=== PATIENT | female | born 1930 | race Hispanic/Latino ===

== ENCOUNTER 2018-02-10 01:07 | Emergency (ER) | payer OTHER ==
[2018-02-10] MEDS ORDERED: WATER FOR INJ,STERILE 20 ML ONE (01:48)
--- NOTE | 2018-02-10 01:55 | EDPHYS ---
Physician Documentation [facility] Name: Pati Miramontes Age: 87 yrs Sex: Female : 1930 Arrival Date: 02/10/2018 Time: 01:12 Bed 16 Private MD: ED Physician Naresh Perry HPI: 02/10 01:49 This 87 yrs old Female presents to ER via Unassigned with complaints of michael REMOVED PEG TUBE. 01:49 The patient presents with abdominal pain. Onset: The symptoms/episode began/occurred michael just prior to arrival. The symptoms do not radiate. The symptoms do not radiate. Associated signs and symptoms: none. The symptoms are described as gastrostomy tube out. Modifying factors: The symptoms are alleviated by nothing, the symptoms are aggravated by nothing. Severity of pain: At its worst the pain was mild in the emergency department the pain is unchanged. The patient has not experienced similar symptoms in the past. Historical: - Allergies: 02:06 Hydrocodone-Acetaminophen; tl2 02:06 Warfarin; tl2 02:06 Promethazine; tl2 - Home Meds: 02:06 Nexium 20 mg Oral cpDR 1 cap once daily [Active]; Plavix 75 mg Oral tab 1 tab once tl2 daily [Active]; aspirin 81 mg Oral chew 1 tab once daily [Active]; amlodipine 5 mg tab 1 tab once daily [Active]; lisinopril 2.5 mg Oral tab 1 tab once daily [Active]; Lasix 20 mg Oral tab 1 tab once daily [Active]; digoxin 125 mcg Oral tab 1 tab once daily [Active]; - PMHx: 02:06 CVA; CHF; Atrial Fib; Hypertension; tl2 - PSHx: 02:06 Bowel resection; Knee surgery; Hysterectomy; pacemaker; Cholecystectomy; tl2 - Immunization history:: Adult Immunizations up to date. - Social history:: Smoking status: Patient/guardian denies using tobacco. - Family history:: not pertinent. - Ebola Screening: : No symptoms or risks identified at this time. ROS: 01:49 Constitutional: Negative for fever, chills, and weight loss, Eyes: Negative for injury, michael pain, redness, and discharge, ENT: Negative for injury, pain, and discharge, Neck: Negative for injury, pain, and swelling, Cardiovascular: Negative for chest pain, palpitations, and edema, Respiratory: Negative for shortness of breath, cough, wheezing, and pleuritic chest pain, Back: Negative for injury and pain, : Negative for injury, bleeding, discharge, and swelling, MS/Extremity: Negative for injury and deformity, Skin: Negative for injury, rash, and discoloration, Neuro: Negative for headache, weakness, numbness, tingling, and seizure, Psych: Negative for depression, anxiety, suicide ideation, homicidal ideation, and hallucinations, Allergy/Immunology: Negative for hives, rash, and allergies, Endocrine: Negative for neck swelling, polydipsia, polyuria, polyphagia, and marked weight changes, Hematologic/Lymphatic: Negative for swollen nodes, abnormal bleeding, and unusual bruising. 01:49 Abdomen/GI: Positive for abdominal pain, of the left upper quadrant, peg out. Exam: 01:49 Constitutional: This is a well developed, well nourished patient who is awake, alert, michael and in no acute distress. Head/Face: Normocephalic, atraumatic. Eyes: Pupils equal round and reactive to light, extra-ocular motions intact. Lids and lashes normal. Conjunctiva and sclera are non-icteric and not injected. Cornea within normal limits. Periorbital areas with no swelling, redness, or edema. ENT: Nares patent. No nasal discharge, no septal abnormalities noted. Tympanic membranes are normal and external auditory canals are clear. Oropharynx with no redness, swelling, or masses, exudates, or evidence of obstruction, uvula midline. Mucous membranes moist. Neck: Trachea midline, no thyromegaly or masses palpated, and no cervical lymphadenopathy. Supple, full range of motion without nuchal rigidity, or vertebral point tenderness. No Meningismus. Chest/axilla: Normal chest wall appearance and motion. Nontender with no deformity. No lesions are appreciated. Cardiovascular: Regular rate and rhythm with a normal S1 and S2. No gallops, murmurs, or rubs. Normal PMI, no JVD. No pulse deficits. Respiratory: Lungs have equal breath sounds bilaterally, clear to auscultation and percussion. No rales, rhonchi or wheezes noted. No increased work of breathing, no retractions or nasal flaring. Back: No spinal tenderness. No costovertebral tenderness. Full range of motion. Female : Normal external genitalia. Skin: Warm, dry with normal turgor. Normal color with no rashes, no lesions, and no evidence of cellulitis. MS/ Extremity: Pulses equal, no cyanosis. Neurovascular intact. Full, normal range of motion. Psych: Awake, alert, with orientation to person, place and time. Behavior, mood, and affect are within normal limits. 01:49 Abdomen/GI: Inspection: abdomen appears normal, Bowel sounds: normal, Palpation: nontender, Liver: no appreciated palpable abnormalities, Hernia: not appreciated. Vital Signs: 02:06 BP 109 / 84; Pulse 84; Resp 20; Pulse Ox 98% on R/A; Weight 74.84 kg; Height 5 ft. 3 tl2 in. (160.02 cm); Pain 0/10; 03:00 BP 114 / 54; Pulse 79; bs1 03:45 BP 110 / 55; Pulse 68; Resp 18 S; Temp 98(A); Pulse Ox 98% on R/A; bs1 02:06 Body Mass Index 29.23 (74.84 kg, 160.02 cm) tl2 MDM: 01:38 Patient medically screened. [facility] 01:49 Data reviewed: vital signs, nurses notes. [facility] 02/10 01:54 Order name: ENTEROSTOMY TUBE CHECK W/CONTR EDMS Administered Medications: No medications were administered Disposition: 02/10/18 01:54 Discharged to Home. Impression: Gastrostomy status, Gastrostomy complication, unspecified. - Condition is Stable. - Discharge Instructions: Gastrostomy Tube Replacement, Gastrostomy Tube Home Guide, Adult, PEG Tube Home Guide, [id number]-ot-Dyme, Gastrostomy Tube Replacement, Care After, PEG Tube Home Guide. - Medication Reconciliation Form, Thank You Letter, Antibiotic Education, Prescription Opioid Use form. - Follow up: Private Physician; When: 2 - 3 days; Reason: Recheck today's complaints, Continuance of care, Re-evaluation by your physician. Follow up: Connie Johnson MD; When: 2 - 3 days; Reason: Recheck today's complaints, Re-evaluation by your physician. - Problem is new. - Symptoms have improved. Signatures: Dispatcher [employer] EDMS Naresh Perry MD MD cha Knox, Taylor RN RN tl2 Carpenter, Neena, RN RN bs1 Corrections: (The following items were deleted from the chart) 01:54 01:49 Abdomen 1 View (KUB)+RAD.RAD.BRZ ordered. [facility] 04:20 01:54 02/10/2018 01:54 Discharged to Home. Impression: Gastrostomy status; Gastrostomy bs1 complication, unspecified. Condition is Stable. Forms are Medication Reconciliation Form, Thank You Letter, Antibiotic Education, Prescription Opioid Use. Follow up: Private Physician; When: 2 - 3 days; Reason: Recheck today's complaints, Continuance of care, Re-evaluation by your physician. Follow up: Nae Elizabeth; When: 2 - 3 days; Reason: Recheck today's complaints, Re-evaluation by your physician. Problem is new. Symptoms have improved. michael
--- NOTE | 2018-02-10 04:22 | ER ---
Nurse's Notes [facility] Name: Pati Miramontes Age: 87 yrs Sex: Female : 1930 Arrival Date: 02/10/2018 Time: 01:12 Bed 16 Private MD: Diagnosis: Gastrostomy status;Gastrostomy complication, unspecified Presentation: 02/10 01:58 Presenting complaint: Child states: We were on our way home and her PEG tube came out tl2 around 9:00 tonight, I tried to put it back in. [facility] didn't have PEG tubes so we came here. Daughter states mother is at normal mentation and denies pain. Transition of care: patient was not received from another setting of care. Onset of symptoms was February 09, 2018 at 21:00. Risk Assessment: Do you want to hurt yourself or someone else? Patient reports no desire to harm self or others. Initial Sepsis Screen: Does the patient meet any 2 criteria? No. Patient's initial sepsis screen is negative. Does the patient have a suspected source of infection? No. Patient's initial sepsis screen is negative. Care prior to arrival: None. 01:58 Method Of Arrival: Wheelchair tl2 01:58 Acuity: MARLON 4 tl2 Triage Assessment: 02:06 General: Appears in no apparent distress. uncomfortable, Behavior is agitated. Pain: tl2 Denies pain. Neuro: Level of Consciousness is awake, alert, Oriented to person. Cardiovascular: Denies chest pain. Respiratory: Airway is patent Respiratory effort is even, unlabored, Respiratory pattern is regular, symmetrical. GI: Parent/caregiver reports the patient having diarrhea. GI: PEG tube Site clean. PEG tube removed. : No signs and/or symptoms were reported regarding the genitourinary system. Derm: Skin is normal. Historical: - Allergies: 02:06 Hydrocodone-Acetaminophen; tl2 02:06 Warfarin; tl2 02:06 Promethazine; tl2 - Home Meds: 02:06 Nexium 20 mg Oral cpDR 1 cap once daily [Active]; Plavix 75 mg Oral tab 1 tab once tl2 daily [Active]; aspirin 81 mg Oral chew 1 tab once daily [Active]; amlodipine 5 mg tab 1 tab once daily [Active]; lisinopril 2.5 mg Oral tab 1 tab once daily [Active]; Lasix 20 mg Oral tab 1 tab once daily [Active]; digoxin 125 mcg Oral tab 1 tab once daily [Active]; - PMHx: 02:06 CVA; CHF; Atrial Fib; Hypertension; tl2 - PSHx: 02:06 Bowel resection; Knee surgery; Hysterectomy; pacemaker; Cholecystectomy; tl2 - Immunization history:: Adult Immunizations up to date. - Social history:: Smoking status: Patient/guardian denies using tobacco. - Family history:: not pertinent. - Ebola Screening: : No symptoms or risks identified at this time. Screenin:11 Abuse screen: Denies threats or abuse. Nutritional screening: No deficits noted. tl2 Tuberculosis screening: No symptoms or risk factors identified. Fall Risk Secondary diagnosis (15 points) Gait- Normal/Bed Rest/Wheelchair (0 pts) Mental Status- Overestimates/Forgets Limitations (15 pts.). Assessment: 02:12 General: see triage assessment. tl2 02:12 GI: PEG tube in place, KUB Xray ordered to confirm placement. tl2 02:42 Reassessment: Report received from RYLAN Saleh. Pending KUB results to be discharged. No bs1 further needs at this time. 03:45 Reassessment: Patient appears in no apparent distress at this time. Patient and/or bs1 family updated on plan of care and expected duration. Pain level reassessed. Patient is alert, oriented x 3, equal unlabored respirations, skin warm/dry/pink. PEG tube in correct place, pEG tube secured with medipore tape. Family member states understanding of discharge instructions. Vital Signs: 02:06 BP 109 / 84; Pulse 84; Resp 20; Pulse Ox 98% on R/A; Weight 74.84 kg; Height 5 ft. 3 tl2 in. (160.02 cm); Pain 0/10; 03:00 BP 114 / 54; Pulse 79; bs1 03:45 BP 110 / 55; Pulse 68; Resp 18 S; Temp 98(A); Pulse Ox 98% on R/A; bs1 02:06 Body Mass Index 29.23 (74.84 kg, 160.02 cm) tl2 ED Course: 01:12 Patient arrived in ED. al2 01:37 Naresh Perry MD is Attending Physician. michael 01:53 Connie Johnson MD is Referral Physician. michael 01:57 Therese Arrington, RN is Primary Nurse. tl2 02:00 Triage completed. tl2 02:06 Arm band placed on right wrist. tl2 02:11 Patient has correct armband on for positive identification. Bed in low position. Call tl2 light in reach. Side rails up X2. Adult w/ patient. 02:19 ENTEROSTOMY TUBE CHECK W/CONTR In Process Unspecified. EDHI 04:17 Neena Carpenter, RN is Primary Nurse. bs1 04:17 No provider procedures requiring assistance completed. Patient did not have IV access bs1 during this emergency room visit. Administered Medications: No medications were administered Outcome: 01:54 Discharge ordered by . [facility] 04:17 Discharged to home via wheelchair, with family. bs1 04:17 Condition: stable 04:17 Discharge instructions given to family, Instructed on discharge instructions, follow up and referral plans. Demonstrated understanding of instructions, follow-up care. 04:20 Patient left the ED. bs1 Signatures: Dispatcher [employer] EDHI Naresh Perry MD MD cha Knox, Taylor, RN RN tl2 Neena Carpenter, RYLAN RN bs1 Milagro Robles Corrections: (The following items were deleted from the chart) 04:20 03:00 BP 110 / 92; Pulse 68bpm; Resp 18bpm; Spontaneous; Pulse Ox 98% RA; bs1 bs1
--- NOTE | 2018-02-10 08:29 | RAD REPORT ---
EXAM DESCRIPTION: RAD - ENTEROSTOMY TUBE CHECK W/CONTR - 02/10/2018 2:19 am CLINICAL HISTORY: ABD PAIN COMPARISON: No comparisons FINDINGS: Two plain radiographs of the abdomen were obtained before and after infusion of contrast i nto the existing G-tube. After the infusion of contrast via G-tube contrast is seen to enter the stom ach and proximal small bowel, confirming adequate placement. No contrast leakage.
== END 2018-02-10 04:20 | disposition home or self-care (01) ==
LOC: ER 01:07
DX: Z93.1 Gastrostomy status (principal); I10 Essential (primary) hypertension; I48.91 Unspecified atrial fibrillation; I50.9 Heart failure, unspecified; Z79.01 Long term (current) use of anticoagulants; Z79.82 Long term (current) use of aspirin; Z86.73 Personal history of transient ischemic attack (TIA), and cerebral infarction without residual deficits; Z88.5 Allergy status to narcotic agent; Z88.8 Allergy status to other drugs, medicaments and biological substances; Z95.0 Presence of cardiac pacemaker
CPT/HCPCS: 49465; 99283